=== PATIENT | female | born 1980 | race Caucasian/White ===

== ENCOUNTER 2017-01-11 16:07 | Emergency (ER) | payer SELFPAY ==
[2017-01-11] MEDS ORDERED: ALBUTEROL/IPRATROPIUM 2.5/0.5 MG 3 ML/EACH DOSE ONE (20:37)
== END 2017-01-11 16:29 | disposition home or self-care (01) ==
LOC: ED 16:07
DX: J20.9 Acute bronchitis, unspecified (principal); J01.90 Acute sinusitis, unspecified

== ENCOUNTER 2017-02-04 19:45 | Emergency (ER) | payer SELFPAY | END 2017-02-04 20:29 | disposition home or self-care (01) | LOC: ED 19:45 | DX: Z53.21 Procedure and treatment not carried out due to patient leaving prior to being seen by health care provider (principal) ==